=== PATIENT | female | born 1985 | race African-American/Black ===

== ENCOUNTER 2016-08-31 09:30 | Emergency (ER) | payer MEDICAID ==
[~2016-08-31] VITALS: Ht 167.6 cm; Wt 160.0 kg
[2016-08-31 11:48] LABS: HCG SCREEN NEGATIVE
[2016-08-31] MEDS ORDERED: HYDROCODONE/ACETAMINOPHEN 5/325MG TABLET PO ONE (12:00)
[2016-08-31 12:32] VITALS: BP 165/65
== END 2016-08-31 13:03 | disposition home or self-care (01) ==
LOC: ER 10:50
DX: S30.0XXA Contusion of lower back and pelvis, initial encounter (principal); S10.93XA Contusion of unspecified part of neck, initial encounter; E11.9 Type 2 diabetes mellitus without complications; F17.210 Nicotine dependence, cigarettes, uncomplicated; V43.52XA Car driver injured in collision with other type car in traffic accident, initial encounter; Y93.89 Activity, other specified; Y92.488 Other paved roadways as the place of occurrence of the external cause; Y99.8 Other external cause status
CPT/HCPCS: 72040; 72100; 84703; 99285

== ENCOUNTER 2016-12-15 15:45 | Emergency (ER) | payer MEDICAID ==
[~2016-12-15] VITALS: Ht 167.6 cm; Wt 165.0 kg
[2016-12-15] MEDS ORDERED: METF10002 PO (16:24)
[2016-12-15] MEDS ORDERED: KETOROLAC 60MG/2ML VIAL IM ONE (18:15)
[2016-12-15 18:29] VITALS: BP 167/93
[2016-12-15] MEDS ORDERED: CYCL5TAB PO (18:30)
[2016-12-15] MEDS ORDERED: MAPAP (18:30)
[2016-12-15] MEDS ORDERED: KETOPROFEN (18:30)
[2016-12-15] MEDS ORDERED: OMEP20CA10 PO (18:31)
== END 2016-12-15 19:19 | disposition home or self-care (01) ==
LOC: ER 18:40
DX: G89.29 Other chronic pain (principal); M54.9 Dorsalgia, unspecified; E11.9 Type 2 diabetes mellitus without complications; I10 Essential (primary) hypertension; E66.01 Morbid (severe) obesity due to excess calories; R21 Rash and other nonspecific skin eruption; Z68.43 Body mass index [BMI] 50.0-59.9, adult
CPT/HCPCS: 81025; 96372; 99283; J1885

== ENCOUNTER 2017-03-10 13:15 | Emergency (ER) | payer MEDICAID ==
[~2017-03-10] VITALS: Ht 167.6 cm; Wt 160.0 kg
[~2017-03-10 13:15] MED LIST: CYCL5TAB PO; KETOPROFEN; MAPAP; METF10002 PO; OMEP20CA10 PO
[2017-03-10] MEDS ORDERED: KETOROLAC 60MG/2ML VIAL IM ONE (16:30)
[2017-03-10 16:53] VITALS: BP 153/99
== END 2017-03-10 17:21 | disposition home or self-care (01) ==
LOC: ER 15:32
DX: G89.29 Other chronic pain (principal); M54.9 Dorsalgia, unspecified; E66.01 Morbid (severe) obesity due to excess calories; I10 Essential (primary) hypertension; E11.9 Type 2 diabetes mellitus without complications
CPT/HCPCS: 96372; 99283; J1885

== ENCOUNTER 2017-09-11 12:29 | Emergency (ER) | payer MEDICAID ==
[~2017-09-11] VITALS: Ht 167.6 cm; Wt 155.0 kg
[2017-09-11 15:38] VITALS: BP 151/82
== END 2017-09-11 15:41 | disposition home or self-care (01) ==
LOC: ER 15:30
DX: J06.9 Acute upper respiratory infection, unspecified (principal); E11.9 Type 2 diabetes mellitus without complications
CPT/HCPCS: 99283

== ENCOUNTER 2017-10-18 00:11 | Emergency (ER) | payer MEDICAID | END 2017-10-18 02:00 | disposition left against medical advice (07) | LOC: ER 01:52 | DX: H92.01 Otalgia, right ear (principal); Z53.21 Procedure and treatment not carried out due to patient leaving prior to being seen by health care provider ==

== ENCOUNTER 2018-04-02 01:40 | Emergency (ER) | payer MEDICAID ==
[~2018-04-02] VITALS: Ht 167.6 cm; Wt 163.0 kg
[~2018-04-02 01:40] MED LIST changes: +METF-416 PO; -METF10002 PO
[2018-04-02 02:28] VITALS: BP 138/58
[2018-04-02] MEDS ORDERED: AMOXICILLIN 500 MG CAPSULE PO ONE (04:30)
== END 2018-04-02 04:58 | disposition home or self-care (01) ==
LOC: ER 02:35
DX: H66.93 Otitis media, unspecified, bilateral (principal); E11.9 Type 2 diabetes mellitus without complications; D64.9 Anemia, unspecified
CPT/HCPCS: 99283

== ENCOUNTER 2021-12-21 07:13 | Emergency (ER) | payer MEDICAID ==
[~2021-12-21] VITALS: Ht 167.6 cm; Wt 177.2 kg
[~2021-12-21 07:13] MED LIST changes: -OMEP20CA10 PO; +OMEP20CA14 PO
[2021-12-21] MEDS ORDERED: IBUPROFEN 400MG TABLET PO ONE (08:00)
[2021-12-21 08:31] VITALS: BP 168/80
[2021-12-21] MEDS ORDERED: IBUP-2028 PO (09:08)
== END 2021-12-21 09:28 | disposition home or self-care (01) ==
LOC: ER 07:13
DX: S60.052A Contusion of left little finger without damage to nail, initial encounter (principal); W23.0XXA Caught, crushed, jammed, or pinched between moving objects, initial encounter; Y93.89 Activity, other specified; Y92.89 Other specified places as the place of occurrence of the external cause; E11.9 Type 2 diabetes mellitus without complications; Z79.84 Long term (current) use of oral hypoglycemic drugs
CPT/HCPCS: 29130; 73130; 99283